=== PATIENT | male | born 1965 | race Caucasian/White ===

== ENCOUNTER 2018-01-01 08:55 | Outpatient (CLI) | payer OTHER, SELFPAY ==
--- NOTE | 2018-01-01 17:13 | NM ---
NUCLEAR MEDICINE BRAIN IMAGING: Date: 01/01/18 HISTORY: 52-year-old male with Parkinson's disease. TECHNIQUE: A DaTscan with axial tomographic images of the brain was obtained 3 hours following the intravenous a dministration of 4.5 mCi Iodine-123 Ioflupane. The patient was pretreated with 130 mg of potassium io dide orally 1 hour prior to the injection. FINDINGS: Fairly symmetric uptake is seen in the striata bilaterally. The crescent-shaped focal regions of acti vity in the striata are mirrored about the median plane. IMPRESSION: Normal exam. POS: [facility]
== END 2018-01-01 08:56 | disposition home or self-care (01) ==
LOC: NM 08:55
PROVIDERS: ATTEND Psychiatry & Neurology Neurology
DX: G20 Parkinson's disease (principal)
CPT/HCPCS: 78607; A9584